=== PATIENT | male | born 1980 | race African-American/Black ===

== ENCOUNTER 2016-02-25 18:56 | Emergency (ER) | payer SELFPAY ==
[~2016-02-25] VITALS: Ht 180.3 cm; Wt 75.0 kg
[2016-02-25 18:58] VITALS: BP 147/87; PULSE 90; RESP 22; TEMP 98.6; O2SAT 100
[2016-02-25] MEDS ORDERED: RISP4TAB41 PO (19:03)
[2016-02-25] MEDS ORDERED: ZOLO25TA PO (19:03)
[2016-02-25] MEDS ORDERED: LIDOCAINE 1%/EPINEPHrine 1:100,000 SOLN 20 ML VIAL INFIL ONE (19:15)
[2016-02-25] MEDS ORDERED: TETANUS/DIPHTHERIA TOXOID ADULT 0.5 ML VIAL IM ONE (19:15)
[2016-02-25] MEDS ORDERED: SODIUM CHLORIDE 0.9% FLUSH 5 ML FLUSH IVF PRN (19:15)
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
[2016-02-25 19:50] VITALS: O2SAT 98
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
[2016-02-25] MEDS ORDERED: KETOROLAC TROMETHAMINE 30 MG/ML (IVP) VIAL IV PUSH ONE (20:45)
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
[2016-02-25 20:53] LABS: APTT (PATIENT) 26.1 SEC (24.3-30.1); AUTOMATED NEUTROPHIL # 4.3 TH/MM3 (1.8-7.7); BASOPHIL % 0.7 % (0.0-2.0); EOSINOPHIL % 0.5 % (0.0-4.0); HEMATOCRIT 40.3 % (39.0-51.0); HEMO FLAGS DIFF FINAL; LYMPHOCYTE # 1.5 TH/MM3 (1.0-4.8); MEAN CELL VOLUME 86.7 FL (80.0-100.0); MEAN CORPUSCULAR HEMOGLOBIN 28.5 PG (27.0-34.0); MEAN CORPUSCULAR HGB CONC 32.9 % (32.0-36.0); MONO % 13.6 % (0.0-8.0); NEUT % 63.2 % (16.0-70.0); PLATELET COUNT 329 TH/MM3 (150-450); PROTHROMBIN TIME - PATIENT 11.2 SEC (9.8-11.6); RED BLOOD COUNT 4.64 MIL/MM3 (4.50-5.90); WHITE BLOOD COUNT 6.8 TH/MM3 (4.0-11.0)
[2016-02-25 22:34] LABS: BLOOD, URINE NEG (NEG); COMMENT (UR) CULT NOT INDICATED; CULTURE IF INDICATED CULT NOT INDICATED; GLUCOSE,URINE NEG (NEG); HYALINE CAST, URINE 1 /lpf (RARE); KETONE, URINE 10 mg/dL (NEG); MUCUS URINE FEW /lpf (OCC); NITRITE,URINE NEG (NEG); URINE COLOR YELLOW (YELLW/STRAW)
[2016-02-25 22:41] LABS: AMPHETAMINE, URINE NEG (NEG); BARBITURATES, URINE NEG (NEG); COCAINE, URINE POS (NEG)
[2016-02-25] MEDS ORDERED: IBUP-232 PO (23:02)
[2016-02-25] MEDS ORDERED: CYCL1TAB29 PO (23:02)
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
--- NOTE | 2016-02-27 16:01 | EKG ---
Date Performed: 02/25/2016 Time Performed: 19:46:55 PTAGE: 35 years EKG: Sinus rhythm WITH MARKED SINUS ARRHYTHMIA Prior tracing not available for comparison BORDERLINE ECG PREVIOUS TRACING : 08/10/2006 11.02 DOCTOR: Luis Juarez Interpretating Date/Time 02/27/2016 15:59:35
== END 2016-02-25 23:40 | disposition home or self-care (01) ==
LOC: NEPC 18:56
DX: S01.81XA Laceration without foreign body of other part of head, initial encounter (principal); M54.2 Cervicalgia; M54.9 Dorsalgia, unspecified; F17.210 Nicotine dependence, cigarettes, uncomplicated; I49.8 Other specified cardiac arrhythmias; V43.62XA Car passenger injured in collision with other type car in traffic accident, initial encounter
CPT/HCPCS: 12011; 70450; 71010; 72072; 72110; 72125; 80307; 80320; 81001; 85025; 85610; 85730; 86850; 86900; 86901; 90471; 90714; 93005; 96374; 99284; J1885

== ENCOUNTER 2016-03-07 04:06 | Emergency (ER) | payer OTHER ==
[~2016-03-07] VITALS: Ht 180.3 cm; Wt 75.0 kg
[~2016-03-07 04:06] MED LIST: CYCL1TAB29 PO; IBUP-232 PO; RISP4TAB41 PO; ZOLO25TA PO
[2016-03-07 04:08] VITALS: BP 139/72; PULSE 90; RESP 18; TEMP 98.2; O2SAT 98
[2016-03-07] MEDS ORDERED: DICL75TA PO (04:23)
[2016-03-07] MEDS ORDERED: BACL10TA PO (04:23)
[2016-03-07] MEDS ORDERED: LIDO5DIS35 TOPICAL (04:23)
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
== END 2016-03-07 05:05 | disposition home or self-care (01) ==
LOC: NEPB 04:06
DX: Z48.02 Encounter for removal of sutures (principal); S39.012D Strain of muscle, fascia and tendon of lower back, subsequent encounter; Z79.899 Other long term (current) drug therapy; V40.9XXD Unspecified car occupant injured in collision with pedestrian or animal in traffic accident, subsequent encounter
CPT/HCPCS: 99281

== ENCOUNTER 2016-08-14 05:31 | Emergency (ER) | payer OTHER ==
[~2016-08-14] VITALS: Ht 180.3 cm; Wt 80.0 kg
[2016-08-14 05:51] VITALS: BP 133/83; PULSE 114; RESP 18; TEMP 98.2; O2SAT 99
--- NOTE | 2016-08-14 06:07 | PD ---
HPI Chief Complaint: Psychiatric Symptoms Time Seen by Provider: 06:07 Travel History International Travel<30 days: No Contact w/Intl Traveler<30days: No Traveled to known affect area: No History of Present Illness HPI 36-year-old black male presents to emergency department under [place] act by PD. The patient contacted PD notifying them that he has a history of schizophrenia and he has been off his medications. He is having thoughts of self-harm or harm to others. He states that he is having a bad day. Patient denies drugs. He does smoke cigarettes or drink alcohol on occasion. He denies any toxic ingestions. He denies any medical complaints otherwise. PFSH Past Medical History Narrative Medical Bipolar, schizophrenic Bipolar Disorder: Yes Diminished Hearing: No Schizophrenia: Yes Tetanus Vaccination: < 5 Years Past Surgical History Surgical History: No Previous Surgery Social History Alcohol Use: Yes (OCCAS.) Tobacco Use: Yes (3-4 CIGARETTES DAILY) Substance Use: No (pt denies.) Allergies-Medications (Allergen,Severity, Reaction): Coded Allergies: No Known Allergies (Verified , 03/07/16) Reported Meds & Prescriptions Reported Meds & Active Scripts Active Reported Zoloft (Sertraline HCl) 25 Mg Tab 5 Mg PO DAILY Risperdal (Risperidone) 4 Mg Tab 5 Mg PO DAILY Review of Systems Except as stated in HPI: all other systems reviewed are Neg Physical Exam Narrative GENERAL: Well-nourished, well-developed patient. SKIN: Warm and dry. HEAD: Normocephalic and atraumatic. EYES: No scleral icterus. No injection or drainage. ENT: No nasal drainage noted. Mucous membranes pink. Airway patent. NECK: Supple, trachea midline. Moves head freely without obvious discomfort. CARDIOVASCULAR: Regular rate and rhythm without murmurs, gallops, or rubs. RESPIRATORY: Breath sounds equal bilaterally. No accessory muscle use. GASTROINTESTINAL: Abdomen soft, non-tender, nondistended. EXTREMITIES: No cyanosis or edema. BACK: Nontender without obvious deformity. No CVA tenderness. NEURO: Patient is alert and oriented. no sensorimotor deficits. Nonfocal. Normal speech. PSYCH: No delusions. No auditory or visual hallucinations. Data Data Last Documented VS Vital Signs Date Time Temp Pulse Resp B/P Pulse Ox O2 Delivery O2 Flow Rate FiO2 08/14/16 05:51 98.2 114 18 133/83 99 Orders Complete Blood Count With Diff (08/14/16 05:37) Comprehensive Metabolic Panel (08/14/16 05:37) Psych Screen (08/14/16 05:37) Drug Screen, Random Urine (08/14/16 05:37) Alcohol (Ethanol) (08/14/16 05:37) Salicylates (Aspirin) (08/14/16 05:37) Tylenol (Acetaminophen) (08/14/16 05:37) Labs Laboratory Tests Test 08/14/16 05:45 White Blood Count 8.9 TH/MM3 Red Blood Count 4.44 MIL/MM3 Hemoglobin 12.7 GM/DL Hematocrit 38.9 % Mean Corpuscular Volume 87.7 FL Mean Corpuscular Hemoglobin 28.5 PG Mean Corpuscular Hemoglobin 32.5 % Concent Red Cell Distribution Width 13.0 % Platelet Count 314 TH/MM3 Mean Platelet Volume 6.8 FL Neutrophils (%) (Auto) 76.0 % Lymphocytes (%) (Auto) 15.2 % Monocytes (%) (Auto) 8.5 % Eosinophils (%) (Auto) 0.0 % Basophils (%) (Auto) 0.3 % Neutrophils # (Auto) 6.8 TH/MM3 Lymphocytes # (Auto) 1.4 TH/MM3 Monocytes # (Auto) 0.8 TH/MM3 Eosinophils # (Auto) 0.0 TH/MM3 Basophils # (Auto) 0.0 TH/MM3 CBC Comment DIFF FINAL Differential Comment MDM Medical Decision Making Medical Screen Exam Complete: Yes Emergency Medical Condition: Yes Medical Record Reviewed: Yes Differential Diagnosis MDM: High Differential diagnoses: Schizophrenia, schizoaffective disorder, bipolar, anxiety, depression, adjustment reaction, mood disorder NOS, ODD, depressive disorder NOS, dementia, dementia with agitation, psychosis NOS, substance induced mood disorder, intermittent explosive disorder, Asperger syndrome, infection,electrolyte abnormality, malingering. Narrative Course Mental health screening discussed with the patient. Psychiatric screen ordered. The patient's been medically cleared. This is medical clearance for psychiatric admission Diagnosis Primary Impression: Medical clearance for psychiatric admission Condition: Emiliano Villasenor Aug 14, 2016 06:07
[2016-08-14 06:21] LABS: AUTOMATED NEUTROPHIL # 6.8 TH/MM3 (1.8-7.7); BASOPHIL % 0.3 % (0.0-2.0); HEMATOCRIT 38.9 % (39.0-51.0); HEMO FLAGS DIFF FINAL; LYMPH % 15.2 % (9.0-44.0); LYMPHOCYTE # 1.4 TH/MM3 (1.0-4.8); MEAN CELL VOLUME 87.7 FL (80.0-100.0); MEAN CORPUSCULAR HEMOGLOBIN 28.5 PG (27.0-34.0); MEAN CORPUSCULAR HGB CONC 32.5 % (32.0-36.0); MONO % 8.5 % (0.0-8.0); PLATELET COUNT 314 TH/MM3 (150-450); RED BLOOD COUNT 4.44 MIL/MM3 (4.50-5.90); WHITE BLOOD COUNT 8.9 TH/MM3 (4.0-11.0)
[2016-08-14 06:29] LABS: AMPHETAMINE, URINE NEG (NEG); BARBITURATES, URINE NEG (NEG); COCAINE, URINE POS (NEG)
[2016-08-14 06:49] LABS: ALT (GPT) 26 U/L (12-78); ANION GAP 9 MEQ/L (5-15); AST (GOT) 36 U/L (15-37); BICARBONATE 24.2 MEQ/L (21.0-32.0); BLOOD UREA NITROGEN 14 MG/DL (7-18); CHLORIDE 106 MEQ/L (98-107); GLOMERULAR FILTRATION RATE 85 ML/MIN (>89); POTASSIUM 3.7 MEQ/L (3.5-5.1); SODIUM (NA) 139 MEQ/L (136-145)
[2016-08-14 06:52] LABS: ALKALINE PHOSPHATASE 53 U/L (45-117); TOTAL BILIRUBIN ADULT 0.4 MG/DL (0.2-1.0)
[2016-08-14 07:07] LABS: ACETAMINOPHEN LESS THAN 2.0 MCG/ML (10.0-30.0)
--- NOTE | 2016-08-14 11:14 | PD ---
Physical Exam Date Seen by Provider: Aug 14, 2016 Time Seen by Provider: 11:11 Narrative See the patient for complaints of rectal pain, after the patient is been medically cleared for psychiatric evaluation. Exam shows 3 fairly large tender swollen hemorrhoids surrounding the rectal area without obvious signs of thrombosis or erythema. There is no rectal fissure. Data Data Last Documented VS Vital Signs Date Time Temp Pulse Resp B/P Pulse Ox O2 Delivery O2 Flow Rate FiO2 08/14/16 05:51 98.2 114 18 133/83 99 Orders Complete Blood Count With Diff (08/14/16 05:37) Comprehensive Metabolic Panel (08/14/16 05:37) Psych Screen (08/14/16 05:37) Drug Screen, Random Urine (08/14/16 05:37) Alcohol (Ethanol) (08/14/16 05:37) Salicylates (Aspirin) (08/14/16 05:37) Tylenol (Acetaminophen) (08/14/16 05:37) Diet Regular Basic (08/14/16 Breakfast) Lidocaine 5% Oint (Xylocaine 5% Oint) (08/14/16 11:15) Hydrocortisone 0.5% Cream (Corticaine 0. (08/14/16 11:15) Ice/Cold Pack (08/14/16 11:11) Labs Laboratory Tests Test 08/14/16 08/14/16 05:45 05:55 White Blood Count 8.9 TH/MM3 Red Blood Count 4.44 MIL/MM3 Hemoglobin 12.7 GM/DL Hematocrit 38.9 % Mean Corpuscular Volume 87.7 FL Mean Corpuscular Hemoglobin 28.5 PG Mean Corpuscular Hemoglobin 32.5 % Concent Red Cell Distribution Width 13.0 % Platelet Count 314 TH/MM3 Mean Platelet Volume 6.8 FL Neutrophils (%) (Auto) 76.0 % Lymphocytes (%) (Auto) 15.2 % Monocytes (%) (Auto) 8.5 % Eosinophils (%) (Auto) 0.0 % Basophils (%) (Auto) 0.3 % Neutrophils # (Auto) 6.8 TH/MM3 Lymphocytes # (Auto) 1.4 TH/MM3 Monocytes # (Auto) 0.8 TH/MM3 Eosinophils # (Auto) 0.0 TH/MM3 Basophils # (Auto) 0.0 TH/MM3 CBC Comment DIFF FINAL Differential Comment Sodium Level 139 MEQ/L Potassium Level 3.7 MEQ/L Chloride Level 106 MEQ/L Carbon Dioxide Level 24.2 MEQ/L Anion Gap 9 MEQ/L Blood Urea Nitrogen 14 MG/DL Creatinine 1.19 MG/DL Estimat Glomerular Filtration 85 ML/MIN Rate Random Glucose 66 MG/DL Calcium Level 8.2 MG/DL Total Bilirubin 0.4 MG/DL Aspartate Amino Transf 36 U/L (AST/SGOT) Alanine Aminotransferase 26 U/L (ALT/SGPT) Alkaline Phosphatase 53 U/L Total Protein 8.2 GM/DL Albumin 3.6 GM/DL Salicylates Level LESS THAN 1.7 MG/DL Acetaminophen Level LESS THAN 2.0 MCG/ML Ethyl Alcohol Level 147 MG/DL Urine Opiates Screen NEG Urine Barbiturates Screen NEG Urine Amphetamines Screen NEG Urine Benzodiazepines Screen NEG Urine Cocaine Screen POS Urine Cannabinoids Screen POS MDM Medical Record Reviewed: Yes Supervised Visit with MICHAEL: Yes Differential Diagnosis Psychiatric symptoms. Symptomatic hemorrhoids. Narrative Course Patient has been medically cleared for psychiatric evaluation. Patient is given ice pack to apply to the tender hemorrhoid area. Patient is also given cortisone cream to be applied every 8 hours. Patient is also ordered 5% lidocaine cream to be applied every 8 hours as well. Patient remains medically cleared for psychiatric evaluation. Diagnosis Primary Impression: Medical clearance for psychiatric admission Condition: Stable Jomar Martinez Aug 14, 2016 11:13
[2016-08-14] MEDS ORDERED: LIDOCAINE HCL 5% OINT 37 GM TUBE TOPICAL PRN (11:15)
[2016-08-14] MEDS ORDERED: HYDROCORTISONE 0.5% CREAM 30 GM TOPICAL SCH (11:15)
== END 2016-08-14 13:12 | disposition home or self-care (01) ==
LOC: NEPD 05:31
DX: F20.9 Schizophrenia, unspecified (principal); F17.210 Nicotine dependence, cigarettes, uncomplicated; K64.9 Unspecified hemorrhoids; Z79.899 Other long term (current) drug therapy
CPT/HCPCS: 80053; 80307; 85025; 99284

== ENCOUNTER 2016-09-16 09:59 | Emergency (ER) | payer SELFPAY ==
[~2016-09-16] VITALS: Ht 175.3 cm; Wt 80.0 kg
[~2016-09-16 09:59] MED LIST changes: -CYCL1TAB29 PO; -IBUP-232 PO
[2016-09-16 10:18] VITALS: BP 120/57; PULSE 84; RESP 15; TEMP 98.2; O2SAT 100
[2016-09-16] MEDS ORDERED: LIDO1CRE31 TOPICAL (10:26)
[2016-09-16] MEDS ORDERED: PROC2.5C RECTAL (10:26)
[2016-09-16] MEDS ORDERED: ANUC25SU RECTAL (10:26)
--- NOTE | 2016-09-16 10:31 | PD ---
HPI Chief Complaint: GI Complaint Time Seen by Provider: 10:26 Travel History International Travel<30 days: No Contact w/Intl Traveler<30days: No Traveled to known affect area: No History of Present Illness HPI 36-year-old Afro-[place] male presents the emergency department with ongoing and recurrent hemorrhoids. Patient was recently treated with topical hydrocortisone cream and topical lidocaine. Patient states it improved but continued to be bothersome and burning without bleeding. Pain is intermittent at this time. Pain is most is 3 out of 10. Patient has no local primary care physician at this time. He has no known drug allergies. PFSH Past Medical History Bipolar Disorder: Yes Diminished Hearing: No Schizophrenia: Yes Social History Alcohol Use: Yes (OCCAS.) Tobacco Use: Yes (3-4 CIGARETTES DAILY) Substance Use: Yes Allergies-Medications (Allergen,Severity, Reaction): Coded Allergies: No Known Allergies (Verified , 03/07/16) Reported Meds & Prescriptions Reported Meds & Active Scripts Active Reported Zoloft (Sertraline HCl) 25 Mg Tab 5 Mg PO DAILY Risperdal (Risperidone) 4 Mg Tab 5 Mg PO DAILY Review of Systems Except as stated in HPI: all other systems reviewed are Neg General / Constitutional: No: Fever Eyes: No: Visual changes HENT: No: Headaches Cardiovascular: No: Chest Pain or Discomfort Respiratory: No: Shortness of Breath Gastrointestinal: No: Abdominal Pain Genitourinary: No: Dysuria Musculoskeletal: No: Pain Skin: No Rash Neurologic: No: Weakness Psychiatric: No: Depression Endocrine: No: Polydipsia Hematologic/Lymphatic: No: Easy Bruising Physical Exam Narrative GENERAL: Patient is in no acute distress SKIN: Warm and dry. Normal color. Normal turgor HEAD: Atraumatic. Normocephalic. EYES: Pupils equal and round. No scleral icterus. No injection or drainage. ENT: No nasal bleeding or discharge. Mucous membranes pink and moist. Pharynx is clear. Airway is patent. NECK: Trachea midline. Neck is supple. CARDIOVASCULAR: Regular rate and rhythm. RESPIRATORY: No accessory muscle use. Clear to auscultation. Breath sounds equal bilaterally. GASTROINTESTINAL: Abdomen soft, non-tender, nondistended. Hepatic and splenic margins not palpable. RECTAL: Patient has multiple currently nontender small hemorrhoids at the 3:00, 7:00, and 10 o'clock position. There is no sign of rectal fissure or thrombosis. Internal exam not performed. MUSCULOSKELETAL: Extremities without clubbing, cyanosis, or edema. No obvious deformities. NEUROLOGICAL: Awake and alert. No obvious cranial nerve deficits. Motor grossly within normal limits. Five out of 5 muscle strength in the arms and legs. Normal speech. PSYCHIATRIC: Appropriate mood and affect; insight and judgment normal. Data Data Last Documented VS Vital Signs Date Time Temp Pulse Resp B/P Pulse Ox O2 Delivery O2 Flow Rate FiO2 09/16/16 10:18 98.2 84 15 120/57 100 MDM Medical Decision Making Medical Screen Exam Complete: Yes Emergency Medical Condition: Yes Medical Record Reviewed: Yes Differential Diagnosis Recurrent hemorrhoids. Rectal pain. Medication refill. Narrative Course Patient is medically stable at time of exam. Patient will be treated with Anusol rectal suppositories 25 mg twice a day #12. Patient also given topical hydrocortisone cream as directed. Patient also given topical lidocaine gel as directed. Patient is referred to [facility] for further evaluation and treatment and primary care establishment. Diagnosis Primary Impression: Hemorrhoids Qualified Code: K64.1 - Grade II hemorrhoids Referrals: [facility] Patient Instructions: General Instructions, Hemorrhoids (ED) Additional Instructions: Patient is medically stable at time of exam. Patient will be treated with Anusol rectal suppositories 25 mg twice a day #12. Patient also given topical hydrocortisone cream as directed. Patient also given topical lidocaine gel as directed. Patient is referred to [facility] for further evaluation and treatment and primary care establishment. Scripts Hydrocortisone Acetate Supp (Anucort-Hc Supp)25 Mg Supp25 Mg RECTAL BID #12 SUPP Ref 0 Prov:Yaakov Flores MD 09/16/16 Lidocaine-Prilocaine Topical (Lidopril Topical)2.5-2.5 % Cream1 Applic TOPICAL QID PRN (Numbs skin) #1 TUBE Ref 0 Prov:Yaakov Flores MD 09/16/16 Hydrocortisone Rectal 2.5% (Proctosol Hc 2.5%)2.5% Cream1 Applic RECTAL QID PRN (PAIN/INFLAMMATION) #1 TUBE Ref 0 Prov:Yaakov Flores MD 09/16/16 Disposition: 01 DISCHARGE HOME Condition: Stable Jomar Martinez Sep 16, 2016 10:31
== END 2016-09-16 11:10 | disposition home or self-care (01) ==
LOC: NEPK 09:59
DX: K64.1 Second degree hemorrhoids (principal); F17.210 Nicotine dependence, cigarettes, uncomplicated
CPT/HCPCS: 99283